=== PATIENT | male | born 1990 | race Hispanic/Latino ===

== ENCOUNTER 2016-10-29 18:05 | Inpatient (IN) | payer OTHER ==
[~2016-10-29] VITALS: Ht 170.2 cm; Wt 83.4 kg
[2016-10-29 18:14] VITALS: BP 130/80; PULSE 80; RESP 16; O2SAT 96
[2016-10-29 19:23] LABS: BASOPHILS % (AUTO) 0.2 % (0-3); MONOCYTES % (AUTO) 8.6 % (4-12); Mean Corpuscular Hemoglobin 30.4 pg (27.0-35.0); Mean Corpuscular Volume 89.2 fL (81-100); NEUTROPHILS % (AUTO) 65.4 % (40-74); Platelet Count 228 bil/L (150-400)
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
--- NOTE | 2016-10-29 20:46 | DRSVH ---
PROCEDURE: X-RAY LEFT FEMUR, TWO VIEWS ([id number]) INDICATIONS: injury TECHNIQUE: 4 views of the femur were acquired. COMPARISON: None. FINDINGS: Bones: No fractures or dislocations. No suspicious bony lesions. Soft tissues: Soft tissue gas and possible radiopaque debris projecting in the lateral soft tissues o f the thigh. There is a BB radiopaque density projecting in the medial thigh soft tissues IMPRESSION: Soft tissue gas and radiopaque debris at the level of the upper thigh. Additionally, a BB-like radiop aque density presumed foreign body projects in the medial soft tissues. Recommend clinical correlatio n and visual inspection. No fracture Dictated by: Navi Sawant M.D. on 10/29/2016 at 20:42 Approved by: Navi Sawant M.D. on 10/29/2016 at 20:44
[2016-10-29] MEDS ORDERED: CEPH500T PO (21:33)
[2016-10-29] MEDS ORDERED: HYDR-4003 PO (21:34)
[2016-10-29] MEDS ORDERED: Lactated Ringer's 1,000 ML IV SCH (21:55)
[2016-10-29] MEDS ORDERED: Ondansetron 2 mg/mL 2 mL Inj IVPUSH PRN ×3 (21:55→22:00)
[2016-10-29] MEDS ORDERED: HYDROmorphone PCA 0.2 mg/mL 30 mL Inj IV PRN (21:55)
[2016-10-29] MEDS ORDERED: MetoCLOpramide 5 mg/mL 2 mL Inj IVPUSH PRN (21:55)
[2016-10-29 21:58] VITALS: BP 119/69; PULSE 65; RESP 20; O2SAT 97
[2016-10-29] MEDS ORDERED: Piper-Tazo 3.375 Gm/50 mL D5W Minibag Plus - Q8H over 4 hrs IV ONE ×2 (22:20)
[2016-10-29 22:44] VITALS: BP 134/72; PULSE 61; RESP 16; O2SAT 98
[2016-10-29] MEDS: Clindamycin Inj 900 MG in IV Premix 1 EACH IV SCH (23:24)
[2016-10-30] VITALS (13 sets, daily range): BP systolic 99–133; BP diastolic 62–84; PULSE 59–71; RESP 9–20; O2SAT 95–100
[2016-10-30] MEDS ORDERED: Piperacillin-Tazo 3.375 Gm Inj 3.375 GM in Dextrose 5% Minibag Plus 50 ML IV SCH (00:30)
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
[2016-10-30] MEDS: HYDROmorphone 0.5 mg/0.5 mL iSecure Syringe IV PRN ×6 (04:20→20:46)
--- NOTE | 2016-10-30 05:58 | NUR ---
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
[2016-10-30] MEDS: Piperacillin-Tazo 3.375 Gm Inj 3.375 GM in Dextrose 5% Minibag Plus 50 ML IV SCH ×2 (06:15→13:50)
[2016-10-30] MEDS: Clindamycin Inj 900 MG in IV Premix 1 EACH IV SCH ×3 (08:05→23:25)
--- NOTE | 2016-10-30 09:41 | NUR ---
Pain/Transfer. Patient maintained on NPO since midnight, Pain level of 6/10. Dilaudid IV 0.5 mg given with relief. Patient A/O x4, coherent and conversant. IVF patent and infusing well. Left leg covered with ABD pad, no bleeding noted.Awaiting transfer to OR for surgery.
[2016-10-30] MEDS ORDERED: Lactated Ringer's 1,000 ML IV ONE (10:40)
[2016-10-30] MEDS ORDERED: Lactated Ringer's 1,000 ML IV SCH (10:52)
[2016-10-30] MEDS ORDERED: Lactated Ringer's 500 ML IV PRN (10:52)
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
[2016-10-30] MEDS ORDERED: EPHEDrine Sulfate 50 mg/mL Inj IVPUSH PRN (10:55)
[2016-10-30] MEDS ORDERED: Ondansetron 2 mg/mL 2 mL Inj IVPUSH PRN (10:55)
[2016-10-30] MEDS ORDERED: Phenylephrine 10,000 mCg/mL Inj IVPUSH PRN (10:55)
[2016-10-30] MEDS ORDERED: Labetalol 5 mg/mL 4 mL Inj IV PRN (10:55)
[2016-10-30] MEDS ORDERED: MetoCLOpramide 5 mg/mL 2 mL Inj IVPUSH PRN (10:55)
[2016-10-30] MEDS ORDERED: hydrALAZINE 20 mg/mL Inj IVPUSH PRN (10:55)
[2016-10-30] MEDS ORDERED: HYDROmorphone 1 mg/mL Inj IVPUSH PRN (10:55)
[2016-10-30] MEDS ORDERED: Atropine 0.4 mg/mL Inj IVPUSH PRN (10:55)
[2016-10-30] MEDS ORDERED: diphenhydrAMINE 25 mg Capsule PO PRN (11:35)
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
[2016-10-30] MEDS: fentaNYL-PF 50 mCg/mL 2 mL Inj IVPUSH PRN ×2 (11:57→12:14)
[2016-10-30] MEDS ORDERED: Ondansetron 2 mg/mL 2 mL Inj ONE (12:18)
[2016-10-30] MEDS ORDERED: Propofol 10,000 mCg/mL 20 mL Inj ONE (12:18)
[2016-10-30] MEDS ORDERED: fentaNYL-PF 50 mCg/mL 2 mL Inj ONE (12:18)
[2016-10-30] MEDS ORDERED: Phenylephrine/NS 100 mCg/mL 10 mL Syringe IVPUSH ONE (12:18)
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
--- NOTE | 2016-10-30 13:02 | PCM.ANEP1 ---
Post Anesthesia Phase 1 PACU Phase 1 Assessment Date of Service: Oct 30, 2016 (1030) Vital Signs Vital Signs Date Time Temp Pulse Resp B/P Pulse Ox O2 Delivery O2 Flow Rate FiO2 10/30/16 12:15 62 13 117/67 100 Room Air 10/30/16 12:00 60 10 117/81 99 Room Air 10/30/16 11:50 59 9 126/84 100 Room Air 10/30/16 11:40 64 10 116/70 100 Room Air 10/30/16 11:35 63 11 118/81 100 Room Air 10/30/16 11:30 37 64 13 133/83 100 Room Air 10/30/16 08:00 36.7 62 16 115/74 98 Anesthetic Administered: GA Level of Alertness: Awake, talking ADAN's with Equal Strength: Yes Pain: Yes Pain Scale Score: 8 Nausea or Vomiting: No Oxygen Delivery: Room Air Lungs: Clear to Auscultation, Normal Air Movement Dermatome Level: Full Sensation Demetrio Sol MD Oct 30, 2016 13:02
--- NOTE | 2016-10-30 13:02 | PCM.ANEP2 ---
Post Anesthesia Evaluation ASA/CMS Post Anesthesia VS in Patient's Normal Range?: Yes Resp Stable; Airway Patent?: Yes CV Function & Hydration Stable: Yes Mental Status Recovered?: Yes Pain control Satisfactory?: Yes N/V Control Satisfactory?: Yes Demetrio Sol MD Oct 30, 2016 13:02
--- NOTE | 2016-10-30 13:33 | NUR ---
Post-op Patient returned to [facility] @ 12:45 S/P I&D of Left thigh. Alert and oriented x4, wound wrapped with gauze with serous secretions, dressing soaked - reinforced. Pain level of 7/10, able to transfer self from gurney to his bed, able to move extremities, limited on the left. Vital signs stable and recorded. Patient made comfortable. Will continue to monitor. Addendum: 10/30/16 at 1827 by CATHERINE GOMEZ RN At around 18:00, patient has some gushing of blood from the incision site, pressure applied, reinforced with more ABD pads and gauze and elastic bandage. Bp-99/62, MS-71, RR-20, Temp-37.2, O2 sats 100%. Dr. Clinton paged awaiting response at this time. Spoke with him earlier, he said he will stop by and see patient after OR procedure. Will continue to monitor.
[2016-10-31] MEDS: Piperacillin-Tazo 3.375 Gm Inj 3.375 GM in Dextrose 5% Minibag Plus 50 ML IV SCH ×3 (00:25→17:54)
[2016-10-31 00:43] VITALS: BP 111/72; PULSE 72; RESP 16; O2SAT 100
[2016-10-31 05:20] VITALS: BP 112/63; PULSE 68; RESP 16; O2SAT 100
--- NOTE | 2016-10-31 05:44 | NUR ---
Left Thigh Wound Assumed pt care at 1900, at 1999 pt reported "gush of blood", left thigh assessed, noted oozing serous drain, dressing completely soaked, paged and spoke with Dr. Clinton aware, recommended to redo dressing, noted large blood clot on wound edges stuck to previous gauze dressing, pressure applied to bleeding site, wet to dry dressing done, site reinforced with multiple gauze and ABD dressing and secured with gauze wrap, medicated pt with PRN Dilaudid, prior to dressing change, at 0555 am left thigh checked, site clean and dry, no evidence of bleed.
[2016-10-31] MEDS: Clindamycin Inj 900 MG in IV Premix 1 EACH IV SCH ×2 (07:48→16:43)
[2016-10-31] MEDS: HYDROmorphone 0.5 mg/0.5 mL iSecure Syringe IV PRN (09:48)
--- NOTE | 2016-10-31 10:16 | PCM.PNSURG ---
Subjective Date of Service: Oct 31, 2016 Visit Information: Reason for Visit Sand Blasting Injury,Subcutaneous Foreign Body, Surgery/Surgery Date Post-Op Day # 1 Date of Admission: Oct 29, 2016 at 21:39 Hospital Day # Subjective: Pain well controlled with oral analgesic. Ambulatory with crutches in the room. Eating solid foods with no nausea or vomiting. Postop General: No Complaints Gastrointestinal: Good Appetite, Tolerating Oral Feedings, No N/V Pain Management: PO, IV Push (for dressing change) Postop Activity: Ambulating in Room Only (with crutches) Objective Vital Sign- Last 8 Hours Date Time Temp Pulse Resp B/P Pulse Ox O2 Delivery O2 Flow Rate FiO2 10/31/16 05:20 36.9 68 16 112/63 100 Room Air Intake and Output- Last 8 Hour 10/31/16 Cumulative From/Thru 07:00 10/29/16 18:14 - 10/31/16 05:27 Intake Total 465 ml 3189 ml Balance 465 ml 3189 ml Intake Oral 360 ml 900 ml IV Total 105 ml 2289 ml # Voids 2 5 General: Alert, Cooperative, No Acute Distress Lungs: Clear to Auscultation Heart: Regular Rate/Rhythm SURGICAL WOUND : Wound Location/Description Left anterolateral thigh wound is examined with the wound care nurse. There is no surrounding erythema or fluctuance. The bed of the wound has minimal retained foreign objects --gravel at the medial aspect of the wound. There are no eschars or exudates. Minimal bleeding at the superior edge of the wound in the bed of the wound that is controlled with silver nitrate stick. Extremities: Thigh&Calf Soft/Nontender Neuro: Normal Speech Catheters: None Result Diagram: 10/29/16190210/29/161902 Assessment & Plan Impression 1. 35 x 15 cm postsurgical debridement site following on-the-job injury with sandblaster to the left anterolateral thigh. POD #1 with stable wound. 2. Daily cigarette smoker Problems: Plan 1. Superior aspect of the wound bleeding site was controlled with silver nitrate stick. 2. Dressing was reapplied. 3. Probable wound VAC placement tomorrow. 4. Eventual skin graft is planned. 5. Continue IV Zosyn and clindamycin. Pain Management: Oxycodone IV Dilaudid for dressing changes VTE Prophylaxis: SCDs Resuscitation Status: CPR: Attempt Resuscitation Prudencio Mckeon PA-C Oct 31, 2016 10:16
[2016-10-31 11:31] VITALS: BP 118/70; PULSE 74; RESP 16; O2SAT 99
--- NOTE | 2016-10-31 11:57 | NUR ---
Home Wound Vac Approval Prior auth has been sent to [facility] for patient to have a home wound vac approved and placed when ready for discharge. I spoke with Carmel at [employer] [phone] and they do not require prior auth for wound vacs so as soon as [facility] releases one and the patient is ready for discharge, Edi Arce from Wound Care can provide the patent with one.
--- NOTE | 2016-10-31 13:40 | NUR ---
Social Work Note - Readiness for Discharge: D/A: The Pt is a 25 y/o male that is on day 2 of hospitalization for sand blasting injury, subcutaneous foreign body with [employer], as per EMR. Pt discussed in rounds, informed that Pt will need dressings for 1-2 days and likely to D/C tomorrow or Matt with wet-to-dry changes or a wound VAC. Recent surgery progress notes report that the Pt will probably have a wound VAC placed tomorrow with the planning of an eventual skin graft. SW followed up with Pt regarding RCA visit and to review the information provided during rounds. Pt reported that RCA was not able to visit due to his dressing being changed. SW contacted RCA, RCA to visit Pt again around 12pm. SW further discussed the possibility of [employer] eligibility as well as other options such as private pay insurance and self-pay through the [facility]. Pt informed that any costs associated with his injury, to include Ot[facility] wound VAC services, will be billed to L&I. Placed call to Mixer Slagman Leonie for Residency Clinic appointment assistance, awaiting appointment confirmation. SW will continue to follow. P: Pt is not medically stable at this time, will need 1-2 days of dressings. Pt will likely D/C tomorrow or Matt with wet-to-dry changes or a wound VAC. Updated surgery notes report probably wound VAC placement tomorrow. [facility] appointment requested, awaiting confirmation. RCA visit scheduled for around 12pm. SW will continue to follow. LENA Gonzales Installer Helper LENA Greene Addendum: 10/31/16 at 1526 by BERRY PRICE SW followed up with Pt after RCA meeting, Pt reported that he is not eligible for ESTRADA. Other options for insurance discussed. SW also followed up with Nursing regarding the Pt's possible medications for discharge, Nursing reports that he will likely need oral antibiotics and pain medication. SW followed up with Pt regarding past pharmacy usage, Pt reports using [facility] in [place]. Left message with Mixer Slagman Leonie regarding this information. LENA Gonzales Installer Helper
--- NOTE | 2016-10-31 14:10 | NUR ---
Pain/dressing change Pt medicated with 1mg Dilaudid before dressing change done by Wound Care. Pt still c/o severe pain with change. Dr Prudencio Mckeon was asked if Dilaudid parameter could be increased for dressing change tomorrow and he agreed to increase dosage.
--- NOTE | 2016-10-31 16:30 | NUR ---
Request for shower Pt requesting shower. Per Prudencio Mckeon, pt should wait until tomorrow to shower. Pt is refusing bed bath/linen change at this time.
[2016-10-31 17:41] VITALS: BP 125/73; PULSE 82; RESP 16; O2SAT 99
--- NOTE | 2016-10-31 17:46 | NUR ---
Wound Care Wound Evaluation order received. Pt seen at bedside. 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 Pt is 1 day post op from surgical debridement of this wound. Wound measures 35 x 15 cm and wound bed is subcutaneous fat with exposed fascia and muscle. Wound is cleaned today after nursing administered 1 dose of dilaudid using blunt dissection and forceps. There was a large area of congealed blood at the superior lateral border of the wound that was removed revealing some venous ooze that was cauterized with silver nitrate. wound was redressed with moist kerlix and reinforced with abd pad and marie wrap. Will work on authorization for home going wound vacuum. dressing to be changed in am. Will need skin grafting in the future and wound center follow up.
[2016-10-31 22:05] VITALS: BP 119/67; PULSE 73; RESP 18; O2SAT 98
[2016-11-01] MEDS: Clindamycin Inj 900 MG in IV Premix 1 EACH IV SCH ×3 (01:00→17:22)
[2016-11-01] MEDS: Piperacillin-Tazo 3.375 Gm Inj 3.375 GM in Dextrose 5% Minibag Plus 50 ML IV SCH ×3 (01:39→18:02)
--- NOTE | 2016-11-01 05:09 | NUR ---
pain C/O 5/10 incisional pain x1. administered PRN PO Oxycodone. one hr Pt reported pain reduced to 4/10, but didn't reach his goal which is 2-3. Administered PRN PO Ibuprofen. pt reported pain relief and didn't voice pain afterward. Dressing C/D/I. VSS. Bed is locked and in low position. call light within reach. will continue to monitor.
[2016-11-01 06:01] VITALS: BP 117/66; PULSE 63; RESP 16; O2SAT 99
[2016-11-01] MEDS: HYDROmorphone 0.5 mg/0.5 mL iSecure Syringe IV PRN ×2 (08:42→09:49)
--- NOTE | 2016-11-01 09:16 | NUR ---
Wound Care Patient seen at bedside with Dr Clinton from surgical services, after nursing administered bolus of pain medication wet to wet dressing was taken down to reveal 9 cm x 15 cm x 1 cm wound at left lateral thigh. This wound was copiously irrigated with saline and gelatinous blood clots removed with forceps and #10 blade. NPWT was applied using white foam to wound bed deeply covered by black foam, continuous therapy was applied at 125 mmHg and a good seal was attained. Still working on authorization of home going unit. Will likely need another 24 hours before he can be discharged to assess pain control and NPWT tolerance. Will recheck on this patient 11/02.
--- NOTE | 2016-11-01 10:29 | PROG NOTE ---
[address] [address] PROGRESS NOTE PATIENT: TIMOTHY WILBURN : 1990 MR#: [id number] ADMIT: 10/29/2016 JOB ID: [id number] DATE: 11/01/2016 SUBJECTIVE: The patient remains afebrile. He had a bowel movement yesterday. OBJECTIVE: I have examined his wound with Edi Linares of wound care. Edema is markedly less. There is no sign of infection. There is no sign of retained particulate matter. Cellulitis has completely resolved. He still is a bit tender distally on his leg away from the incision. There are no new labs today. IMPRESSION AND PLAN: Doing well status post sand blast injury and appropriate debridement. I would like to keep him on IV antibiotics for one more day, given my concern regarding possible gas-producing soft tissue organisms on presentation. I suspect that this reflects more mechanical disruption of the subcutaneous tissues, however. We will place him in a wound VAC today, work on getting [facility] approval for his outpatient wound VAC, and he will likely go home tomorrow. I will make a decision regarding length of antibiotic treatment based on his clinical picture.
[2016-11-01 11:00] VITALS: BP 118/68; PULSE 67; RESP 14; O2SAT 99
--- NOTE | 2016-11-01 11:21 | NUR ---
Arranged follow up hospital appointment for 11/03/16 check in at 1230PM for 1240 PM appointment with . Updated INTERNET APPLICATION DEVELOPER
--- NOTE | 2016-11-01 16:34 | NUR ---
Social Work: Readiness for d/c Data: Pt is on day 3 of hospitalization. Pt discussed in rounds, MD states pt likely ready for d/c tomorrow. Appointment was set up for pt at residency clinic with Dr. Hillman for 11/03/16 check in at 1230PM for 1240 PM. Wound vac needed for pt, wound care setting this up. Per Wound Care notes, "Still working on authorization of home going unit. Will likely need another 24 hours before he can be discharged to assess pain control and NPWT tolerance." UNIT CLERK will continue to follow. Assessment: Pt who is independent at baseline. Plan: Pt will d/c home via POV when medically stable. Wound vac still needs to be obtained by wound care. Appointment was set up for pt at residency clinic with Dr. Hillman for 11/03/16 check in at 1230PM for 1240 PM. UNIT CLERK will continue to follow. LENA Huang
[2016-11-01 17:34] VITALS: BP 102/57; PULSE 85; RESP 12; O2SAT 95
--- NOTE | 2016-11-01 18:21 | NUR ---
Pain Pt given oxycodone every 4 hours for pain. Given one dose of ibuprofen. Pt has reported pain at 2/10 (acceptable to pt) after being given oxycodone. At 0845 pt was given 1mg Dilaudid prior to dressing change and 0.5mg Dilaudid 1 hour after start of change (beginning to end lasted for around an hour). Pain decreased only slightly with Dilaudid.
[2016-11-01 22:10] VITALS: BP 118/60; PULSE 72; RESP 17; O2SAT 98
[2016-11-02] MEDS: Piperacillin-Tazo 3.375 Gm Inj 3.375 GM in Dextrose 5% Minibag Plus 50 ML IV SCH ×2 (00:08→08:54)
[2016-11-02] MEDS: Clindamycin Inj 900 MG in IV Premix 1 EACH IV SCH ×2 (00:08→08:00)
[2016-11-02 05:51] VITALS: BP 114/63; PULSE 62; RESP 17; O2SAT 99
--- NOTE | 2016-11-02 05:53 | NUR ---
Shift Note Assumed pt care at 1900, pt L leg on woundvac, c/d/i, noted sero-sang drain, pain managed with PRN oxy, effective per pt report.
[2016-11-02 07:48] VITALS: BP 112/69; PULSE 71; RESP 14; O2SAT 98
--- NOTE | 2016-11-02 12:28 | PCM.PNSURG ---
Subjective Date of Service: Nov 02, 2016 Visit Information: Reason for Visit Sand Blasting Injury,Subcutaneous Foreign Body, Surgery/Surgery Date Post-Op Day #4 Date of Admission: Oct 29, 2016 at 21:39 Hospital Day # Subjective: Wound VAC is in place and has been established for home use. The patient has a follow-up appointment in the wound care center for wound VAC change on Saturday. He has an appointment with Dr. Hillman in the residency clinic to establish primary care tomorrow. He is eating solid foods with no nausea or vomiting. He had a bowel movement this morning. Pain is well-controlled with oral analgesic. He is ambulating short distances in the room. Postop General: No Complaints Gastrointestinal: Good Appetite, Tolerating Oral Feedings, No N/V, Normal Bowel Movement Pain Management: PO Postop Activity: Ambulating in Room Only Objective Vital Sign- Last 8 Hours Date Time Temp Pulse Resp B/P Pulse Ox O2 Delivery O2 Flow Rate FiO2 11/02/16 07:48 36.9 71 14 112/69 98 Room Air 11/02/16 05:51 36.9 62 17 114/63 99 Room Air Intake and Output- Last 8 Hour 11/02/16 Cumulative From/Thru 07:00 10/29/16 18:14 - 11/02/16 05:36 Intake Total 458 ml 5770 ml Output Total 1080 ml Balance 458 ml 4690 ml Intake Oral 350 ml 2870 ml IV Total 108 ml 2900 ml Output Urine Total 1080 ml # Voids 3 15 # Bowel Movements 2 General: Alert, Cooperative, No Acute Distress Lungs: Clear to Auscultation Heart: Regular Rate/Rhythm, No Murmurs/Rubs/Gallops SURGICAL WOUND : Wound Location/Description Wound VAC is in place over the left thigh wound. There is no surrounding erythema. There is no thigh edema. There is no pain or compartment in the distal extremity. Extremities: Thigh&Calf Soft/Nontender Neuro: Normal Speech Catheters: None Result Diagram: 10/29/16190210/29/161902 Assessment & Plan Impression 1. 35 x 15 cm postsurgical debridement site following on-the-job injury with sandblaster to the left anterolateral thigh. POD #1, stable for discharge. 2. Daily cigarette smoker Problems: Plan The patient will be discharged to home with wound VAC in place and is scheduled wound VAC change in the wound care center on Saturday. He will follow-up with Dr. Hillman to establish primary care in the residency clinic tomorrow. He will be discharged on oral Keflex. Pain Management: Oxycodone Ibuprofen VTE Prophylaxis: SCDs Resuscitation Status: CPR: Attempt Resuscitation copies to: Jeff Hillman Fred H PA-C Nov 02, 2016 12:28
--- NOTE | 2016-11-02 12:31 | PCM.DISURG ---
Surgical Discharge Instruction Date of Service Nov 02, 2016 Dates of Hospitalization Date of Hospital Admission Oct 29, 2016 at 21:39 Providers Admitting Physician: Trevon Clinton MD Primary Care Physician: Jameel Attending Physician: Trevon Clinton MD Discharge Diagnosis Discharge Diagnosis 1. 35 x 15 cm postsurgical debridement site following on-the-job injury with sandblaster to the left anterolateral thigh. 2. Daily cigarette smoker Post Operative diagnosis Same Diet Discharge Diet: No restrictions Activity Discharge Activity-General: Try not to overdue, Activity as pain allows, No driving while taking narcotic Dressing and Incisional Care Hygiene: May shower Additional Instructions Discharge Instructions Follow-up in the wound care center as scheduled on Saturday for a wound VAC change. Follow Up Plan Call your provider for: Fever, Chills, Wound redness, Increasing wound pain Prudencio Mckeon PA-C Nov 02, 2016 12:31
[2016-11-02] MEDS ORDERED: Ibuprofen PO (12:33)
--- NOTE | 2016-11-02 12:38 | PCM.DC.SUR ---
Discharge Summary Date of Service: Nov 02, 2016 Date of Hospital Admission: Oct 29, 2016 at 21:39 Date of Operation(s): 10/30/2016 Date of Discharge: 11/02/2016 Diagnosis at Time of Discharge 1. 35 x 15 cm postsurgical debridement site following on-the-job injury with sandblaster to the left anterolateral thigh. 2. Daily cigarette smoker Problems: Operation Debridement and lavage of sandblast injury, left thigh. Brief History and Physical: Four days ago, the patient sustained injury on the job with a sandblaster striking his left lateral femur area with a downward projection. He had pain since The injury, but was able to walk. He did feel that there was increased swelling and signs of redness two days prior to admission and was placed on oral antibiotics by urgent care. He presented as he felt that he was having slightly increased pain. He denied fevers, chills, systemic illness. He felt that his pain had not accelerated in its progression on the day of admission. Consultants: None Hospital Course: The patient was admitted and underwent the above-mentioned operation without complication. The remainder of his hospitalization consisted of local wound care, wound VAC placement, and IV antibiotics. He was stable for discharge on his fourth postsurgical day after L and I approved home wound VAC. Pathology: None Disposition: The patient was discharged to home on his fourth postsurgical day at which time he was afebrile, wound VAC was in place, his wound was stable and not appearing infected, and he was tolerating pain on oral analgesic. Follow-up Plan: He will follow-up in the wound care center on Saturday for a wound VAC change. At some point he will require skin graft that will be arranged through the wound care center. ([Ibuprofen]) 200 MG TABLET 200 MG PO QID PRN PRN For Pain Cephalexin (Cephalexin) 500 Mg Tablet 500 MG PO QID (Reported) Hydrocodone-Acetaminophen 5-325 mg (Hydrocodone-Acetaminophen 5-325 mg) 1 Each Tablet 1-2 TABLET PO Q6H PRN PRN For Pain (Reported) copies to: Jeff Hillman Fred H PA-C Nov 02, 2016 12:38
[2016-11-02] MEDS ORDERED: CEPH500T PO ×2 (12:45→12:47)
[2016-11-02] MEDS ORDERED: HYDR-4003 PO ×2 (12:45→12:47)
[2016-11-02 14:00] VITALS: BP 108/65; PULSE 76; RESP 18; O2SAT 98
--- NOTE | 2016-11-02 16:19 | NUR ---
Social Work Note - Discharge: D/A: The Pt is a 25 y/o male that is now on day 4 of admission for a sandblasting injury. Informed by Nursing that Wound Care has received an approval for the Pt's Wound VAC, follow-up Wound Care appointment scheduled for 11/05 at 1pm. Pt is scheduled for a follow-up [facility]idency [facility] appointment on 11/03 at 12:30pm. Pt provided with Residency Clinic information to include directions and phone number. SW met with the Pt to review discharge plan, Pt reports no needs. Pt discussed during huddle, SW informed that the Pt's L&I claim was rejected. SW informed that the Pt's claim would go through the [employer] with the [employer]. Pt informed of this update. T/C to [employer] regarding Pt's update, SW directed to the Division of [employer] [place] Compensation under the [employer]. Called the number provided at [phone], left message. Called the [facility] number at [phone]. Spoke to Luaro Bullard, direct number is [phone]. Lauro from the [facility] informed about the Pt's status, Lauro requested to speak with Pt. DARYN met with the Pt at bedside to discuss the situation and provide support. Pt contacted Lauro at the [facility] with DARYN present. Pt informed DARYN that Lauro would be looking into his case. T/C to Registration for update regarding L&I rejection. Informed Registration about the updated changes from L&I to [employer] and then to the Division of [employer] Compensation. DARYN also T/C to [facility] in [place] to inquire about coverage, informed by the pharmacy that they will need a processing number and group number when one is located. T/C from Edi at Wound Care, informed SW that the Pt's Wound VAC was not approved. DARYN informed by firefighter that the Pt can still discharge with the Wound Vac, but may be financially responsible if his claim is not approved. Pt informed. T/C to Lauro at the [facility], Lauro informed DARYN that he had contacted the Pt s employer with [employer] at . He is waiting for a return call. DARYN also called this number, left message. DARYN met with Pt, Pt was on the phone with [employer] in [place]. The Pt reported that [employer] was in contact with Lauro and that Lauro was redirected phone number for the corporate office (listed about). SW contacted [facility] regarding the Pt's status and concern about missing his appointment, [facility] requested to be informed if the Pt will miss his appointment. P: Pt to discharge today, Pt currently pending approval for claim. Pt will follow up with his claim as an outpatient. Pt understands the financial responsibility of discharging home with wound vac that has not been approved. Pt has the financial ability to private pay for discharge medications. Emily Herrera, CATALOGUE MAKER Plate Worker Helper LENA Gray
--- NOTE | 2016-11-02 17:08 | NUR ---
Discharge Patient discharge to home via wheelchair accompanied by family member. Patient instructed to follow up with Residency appointment scheduled tomorrow and wound care clinic on Saturday. Patient aware and understood discharge instructions, all belongings taken home with him. Family appreciative of the care rendered during his stay.
--- NOTE | 2016-11-02 17:48 | NUR ---
Wound Care Pt seen at bedside for discharge instructions regarding wound care and follow up. Pt provided with NPWT ([employer]) unit for home going, Has follow up appoint with wound care 11/05/16. Pt instructed to keep leg elevated and will continue ambulating with crutches as needed.
--- NOTE | 2016-11-05 14:51 | NUR ---
Social Work Note - Late Entry: D/A: DARYN received voicemail from [employer] [phone] from the Division of [employer] regarding the Pt's claim. DARYN provided information regarding the Pt's admission to include date, diagnosis, surgery details, and discharge procedures. Fabby informed that the Pt was discharged on 11/02/16 with follow-up appointments on 11/03/16 at the Residency [facility] and on 11/05/16 with Wound Care. Fabby also provided with [facility] telephone information and the desktop publisher to contact Registration and Billing. Fabby also given the Pt's telephone number. P: Pt was discharged on 11/02/16 with follow-up appointments at the [facility] and [facility] Wound Care. DARYN received call from the Pts new claim Dairy Clerk [employer] and the Division of [employer] Compensation. [employer] provided with all requested information regarding the Pt's hospitalization. Emily Herrera MSW Budget Consultant LENA Greene
== END 2016-11-02 16:30 | disposition home or self-care (01) | DRG 903 ==
LOC: SED 18:05 → MOC 21:39
PROVIDERS: ADMIT Surgery; ATTEND Surgery
PROC: 0JBM0ZZ Excision of Left Upper Leg Subcutaneous Tissue and Fascia, Open Approach (ICD-10-PCS; principal; 2016-10-30 10:15)
DX: S79.822A Other specified injuries of left thigh, initial encounter (principal); X58.XXXA Exposure to other specified factors, initial encounter; Y93.89 Activity, other specified; Y99.0 Civilian activity done for income or pay

== ENCOUNTER 2016-11-21 06:27 | Day surgery (SDC) | payer OTHER ==
[~2016-11-21] VITALS: Ht 170.2 cm; Wt 85.9 kg
[2016-11-21] VITALS (12 sets, daily range): BP systolic 110–142; BP diastolic 63–82; PULSE 62–88; RESP 7–18; O2SAT 92–99
[~2016-11-21 06:27] MED LIST: CEPH500T PO; Clindamycin 900 mg/50 mL D5W IV ONE; HYDR-4003 PO
[2016-11-21] MEDS ORDERED: MetoCLOpramide 5 mg/mL 2 mL Inj ONE (06:28)
[2016-11-21] MEDS ORDERED: fentaNYL-PF 50 mCg/mL 2 mL Inj ONE (06:28)
[2016-11-21] MEDS ORDERED: Ondansetron 2 mg/mL 2 mL Inj ONE (06:28)
[2016-11-21] MEDS ORDERED: Propofol 10,000 mCg/mL 20 mL Inj ONE (06:28)
[2016-11-21] MEDS ORDERED: Dexamethasone 4 mg/mL Inj ONE (06:28)
[2016-11-21] MEDS ORDERED: Lactated Ringer's 1,000 ML IV ONE (06:59)
--- NOTE | 2016-11-21 08:13 | PCM.HPANE ---
Patient Data Surgeon Admitting Provider: Attending Provider:Javon uBrgos MD Primary Care Physician:Jameel Other Provider:Alvin Hercules Anesthesia Reason for Visit Open Left Thigh Wound Ht/WT & BMI Height (Feet): 5 Height (Inches): 7.00 Weight (Kilograms): 85.9 Body Mass Index 29.00 Allergies Coded Allergies: No Known Allergies (Verified Allergy, Unknown, 11/16/16) Past Anesthesia History Anesthesia History: Denies:: Anesthesia Reactions, Malignant Hyperthermia Diabetes History Hx Diabetes?: No MRSA MRSA: No Medications Home Meds Incl Beta Tatiana: No Active Scripts Hydrocodone-Acetaminophen 5-325 mg 1 Each Tablet1-2 Tablet PO Q6H PRN For Pain # 40 TABLET Ref 0 Prov:Jose LuisariadnaPrudencio Natasha PA-C 11/02/16 Cephalexin 500 Mg [id number] Mg PO QID #40 TABLET Ref 0 Prov:Abhilash Mckeond H PA-C 11/02/16 Discontinued Scripts [Ibuprofen] (Motrin)200 MG TABLET No Conflict [id number] Mg PO QID PRN For Pain # 90 Prov:Abhilash Mckeond Natasha PA-C 11/02/16 History History of ENT Problems?: No Hx of Heart Problems?: No Cardiovascular History: Denies:: Congestive Heart Failure Heart Murmur Hypertension Hx of Respiratory Problem?: Yes Respiratory History: Denies:: Pneumonia (HX BRONCHITIS IN CHILDHOOD) Tuberculosis Use of C-PAP Machine Hx Neurologic Problems?: No Hx of GI Problems?: No Hx of Problems?: No Male Hx: Denies:: Prostate Problems Scrotal Mass Testicular Surgery Skin History: Positive for:: History Skin Disorders? (LT THIGH WOUND) Denies:: Pressure Ulcers Hx Musculoskeletal Problems?: Yes Hx of Psycho/Social Problems?: No Hx Surgeries?: Yes (DEBRIDEMENT/LAVAGE LT THIGH WOUND) Hx Any Other Health Problems?: Yes Other History: Positive for:: Hospitalization (FOR INITIAL THIGH WOUND [place]) Denies:: Cancer Endocrine Disease Thyroid Disease History Blood Transfusions: Positive for:: Accept Blood Products? Blood Transfuse Reaction Denies:: Blood Transfusions Hx Diabetes: No Hx Alcohol Use: NoHx Substance Use: Yes (THC) Smoking Status: Light Tobacco Smoker Have You Smoked inLast 12 mo: Yes Stop/Bang S-Snoring: Do You Snore Loudly: No T-Tired: feel tired, fatigued: No O-Obsered: Observed not breath: No P-Blood Pressure: treated: No B- Body Mass Index > 35 kg/m2: No A- Age over 50: No N- Neck Large Circumference: No G- Gender Male: Yes K[place] Total Score: 1 Risk Assessment Category Category 1A: Patient has history of documented sleep apnea, and HAS NOT received any narcotic, sedative or anesthesia administration during this stay. Category 1B: Patient has history of documented sleep apnea, and HAS received any narcotic , sedative or anesthesia administration during this stay Category 2: Patient has SUSPECTED Obstructive Sleep Apnea, and HAS received any narcotic , sedative or anesthesia administration during this stay. Category 3: Patient has SUSPECTED Obstructive Sleep Apnea and HAS NOT received narcotic, sedative or anesthesia administration during this stay. Category 4: Outpatient in Procedural Areas with known sleep apnea or who screen positive for High Risk via the STOP/BANG questionnaire. Exam Exam Vital Signs Vital Signs Date Time Temp Pulse Resp B/P Pulse Ox O2 Delivery O2 Flow Rate FiO2 11/21/16 07:00 36 62 18 112/69 97 Room Air General Appearance: Alert, Oriented X3, Cooperative, No Acute Distress HEENT/AIRWAY: MP 1 Lungs: Clear to Auscultation Heart: Exam Unremarkable Meds/Labs/Diagnostics Admission Meds Current Medications Lactated Ringer's (Lr) 1,000 ml @ ud STK-MED ONCE IV Last administered on 11/21t 06:59; Start 11/21/16 at 06:59; Stop 11/21/16 at 07:00; Status DC Plan Impression Patient chart reviewed, patient interviewed and anesthestic plan with risks, benefits, and alternatives discussed, and informed consent obtained. NPO Status: > 8 hrs ASA Physical Status: ASA2 Mod Systemic Disease Anesthetic Plan: GA Bene/Risks/Altern/Consents: Yes HP Complete Prior to Induction: Yes Efra Jones MD Nov 21, 2016 08:13
[2016-11-21] MEDS ORDERED: Bacitracin 50,000 unit Inj IRRIGATION ONE (08:57)
[2016-11-21] MEDS ORDERED: Bacitracin Zinc 15 Gm Ointment TOPICAL ONE (10:01)
[2016-11-21] MEDS ORDERED: Lactated Ringer's 500 ML IV PRN (10:12)
[2016-11-21] MEDS ORDERED: Lactated Ringer's 1,000 ML IV SCH (10:12)
[2016-11-21] MEDS ORDERED: Dexamethasone 4 mg/mL Inj IVPUSH PRN (10:15)
[2016-11-21] MEDS ORDERED: Ondansetron 2 mg/mL 2 mL Inj IVPUSH PRN (10:15)
[2016-11-21] MEDS ORDERED: Phenylephrine 10,000 mCg/mL Inj IVPUSH PRN (10:15)
[2016-11-21] MEDS ORDERED: EPHEDrine Sulfate 50 mg/mL Inj IVPUSH PRN (10:15)
[2016-11-21] MEDS ORDERED: HYDROmorphone 1 mg/mL Inj IVPUSH PRN (10:15)
[2016-11-21] MEDS ORDERED: MetoCLOpramide 5 mg/mL 2 mL Inj IVPUSH PRN (10:15)
[2016-11-21] MEDS: fentaNYL-PF 50 mCg/mL 2 mL Inj IVPUSH PRN ×2 (10:37→11:29)
[2016-11-21] MEDS: oxyCODONE-Acetamin 10-325 mg Tablet PO PRN ×2 (11:17→12:03)
--- NOTE | 2016-11-21 11:41 | PCM.ANEP1 ---
Post Anesthesia Phase 1 PACU Phase 1 Assessment Vital Signs Vital Signs Date Time Temp Pulse Resp B/P Pulse Ox O2 Delivery O2 Flow Rate FiO2 11/21/16 11:07 86 16 130/82 99 Room Air 11/21/16 10:55 81 11 110/63 97 Room Air 11/21/16 10:50 37 79 12 125/75 96 Room Air 11/21/16 10:45 73 8 132/75 94 Room Air 11/21/16 10:41 75 8 124/76 92 Room Air 11/21/16 10:35 73 10 135/70 94 Room Air 11/21/16 10:25 80 12 130/73 97 Room Air 11/21/16 10:20 81 7 142/67 98 Room Air 11/21/16 10:15 77 12 124/64 99 Room Air 11/21/16 10:10 36.4 74 12 117/71 99 Room Air 11/21/16 07:00 36 62 18 112/69 97 Room Air Anesthetic Administered: GA Level of Alertness: Awake, talking ADAN's with Equal Strength: Yes Pain: No Nausea or Vomiting: No Oxygen Delivery: Room Air Lungs: Clear to Auscultation Dermatome Level: Full Sensation Efra Jones MD Nov 21, 2016 11:41
--- NOTE | 2016-11-21 11:41 | PCM.ANEP2 ---
Post Anesthesia Evaluation ASA/CMS Post Anesthesia VS in Patient's Normal Range?: Yes Resp Stable; Airway Patent?: Yes CV Function & Hydration Stable: Yes Mental Status Recovered?: Yes Pain control Satisfactory?: Yes N/V Control Satisfactory?: Yes Efra Jones MD Nov 21, 2016 11:41
--- NOTE | 2016-11-21 14:42 | OP ---
[address] [id number] OPERATIVE REPORT PATIENT: TIMOTHY WILBURN : 1990 MR#: [id number] ADMIT: 11/21/2016 JOB ID: [id number] DATE OF SURGERY: 11/21/2016 PREOPERATIVE DIAGNOSIS(ES): Left open thigh wound. POSTOPERATIVE DIAGNOSIS(ES): Left open thigh wound, dimension 9 cm x 6 cm. PROCEDURE: 1. Excisional debridement of left thigh wound, area debrided 6 cm x 9 cm. 2. Complex closure of left thigh defect, total length of complex closure is 23 cm. SURGEON: Javon Burgos MD INFORMATION SYSTEMS SECURITY SPECIALIST: FELIPE Alva who was present for necessary retraction, exposure and wound closure. ANESTHESIA: General anesthesia. COMPLICATIONS: None apparent. ESTIMATED BLOOD LOSS: 30 cc. SPECIMEN: None. DRAIN: #15 round Wayne drain, 1 x1. INDICATIONS FOR PROCEDURE: This is a 25-year-old male patient who sustained a sand blasting injury to the left thigh resulting in an open wound. At this point, excision of the wound and closure is indicated. PROCEDURES AND FINDINGS: The patient was identified in the preoperative area. Surgical site was marked. The patient was then taken back to the operating room and placed supine on the operating table. Appropriate time-outs were taken. General anesthesia was induced smoothly. The patient was then prepped and draped in the usual sterile manner. It was noted that patient has an oblique ovoid wound on the left thigh measuring 9 cm x 6 cm in this greatest dimension. The wound appeared to be clean with healing tissue. Using a pulse dental patient coordinator, 1 L of bacitracin infused saline was used to irrigate this wound. Once this has been done, incision was then made at the edge of the wound between the wound bed and the skin with electrocautery. This was deepened down to the underlying muscle fascia. The wound surface itself was then excised off of the muscle fascia. I then elevated the wound circumferentially. Superiorly and inferiorly the wound was elevated approximately 15 cm in each direction at the suprafascial plane medially and laterally. Approximately 5 cm of elevation was done. Once this has been done, I was able to mobilize the skin edge such that it can reapproximate with each other but with some tension. I then placed several 2-0 Vicryl suture reapproximating the deep dermis and the fascial tissue and subcutaneous tissue. This was done at three or four different places. Overlying traction suture using 2-0 nylon sutures were also placed directly over these points to provide additional tension relief. Once three or four of these sutures were placed, two areas of standing cutaneous deformities (dog ears) were marked. One is located at the medial edge of the wound and the second one is located at the inferior lateral edge of the wound. Excess skin darts were removed from this area with a #10 blade followed by electrocautery. Once this has been done, a layer of 3-0 Monocryl deep dermal sutures were then placed. These were placed between the 2-0 Vicryl sutures. A layer of 3-0 nylon simple interrupted sutures were then placed at areas were there was minimal tension. At the area of tension, alternating 3-0 nylon horizontal mattress sutures with 3-0 nylon simple interrupted sutures were placed. Just prior to complete closure, a #15 round Wayne drain was placed into the surgical site at the super fascial plane exiting at a separate lateral inferolateral stab incision. The patient tolerated the procedure well. Needle count, sponge count, instrument counts were correct at the end of the procedure. The patient was extubated and transported to recovery in stable condition.
== END 2016-11-21 23:59 | disposition home or self-care (01) ==
LOC: SAS 06:27
PROVIDERS: ATTEND Plastic Surgery
DX: S71.102A Unspecified open wound, left thigh, initial encounter (principal); W31.82XA Contact with other commercial machinery, initial encounter; Y93.89 Activity, other specified; Y92.69 Other specified industrial and construction area as the place of occurrence of the external cause; Y99.0 Civilian activity done for income or pay; F17.210 Nicotine dependence, cigarettes, uncomplicated
CPT/HCPCS: 13121; 13122; J1100; J2250; J2405; J2765; J3010; J7120